=== PATIENT | male | born 1995 | race Caucasian/White ===

== ENCOUNTER 2023-10-16 00:09 | Emergency (ER) | payer OTHER ==
[~2023-10-16] VITALS: Ht 162.6 cm; Wt 68.0 kg
[2023-10-16 00:09] VITALS: TEMP 98.5
[2023-10-16 08:58] VITALS: BP 125/84; O2SAT 98
== END 2023-10-16 07:15 | disposition home or self-care (01) ==
LOC: ER 00:13
DX: M25.511 Pain in right shoulder (principal); M79.641 Pain in right hand
CPT/HCPCS: 73030-TC; 73130-TC